=== PATIENT | female | born 1985 | race Two or more races ===

== ENCOUNTER 2018-10-20 15:18 | Emergency (ER) | payer BC, MEDICAID ==
[~2018-10-20] VITALS: Ht 157.5 cm; Wt 97.5 kg
[2018-10-20 15:18] VITALS: BP 126/69
[~2018-10-20 15:18] MED LIST: FLUO20CA36 PO; GABA-534 PO; OXCA300T4 PO; PERP2TAB5 PO; QUET300T2 PO
== END 2018-10-20 17:10 | disposition home or self-care (01) ==
LOC: ER 15:28
DX: Z76.0 Encounter for issue of repeat prescription (principal); G89.29 Other chronic pain; M54.9 Dorsalgia, unspecified; I10 Essential (primary) hypertension; F20.9 Schizophrenia, unspecified; F32.9 Major depressive disorder, single episode, unspecified; F41.9 Anxiety disorder, unspecified; E78.00 Pure hypercholesterolemia, unspecified; M19.90 Unspecified osteoarthritis, unspecified site; D64.9 Anemia, unspecified; Z79.899 Other long term (current) drug therapy

== ENCOUNTER 2020-03-04 09:29 | Emergency (ER) | payer MEDICAID, OTHER ==
[~2020-03-04] VITALS: Ht 157.5 cm; Wt 145.1 kg
[2020-03-04 09:30] VITALS: BP 142/83
--- NOTE | 2020-03-04 09:52 | NUR ---
CALLED WOUND CARE FOR FOLLOW UP APPOINTMENT. DR. GLOVER WILL BE ASSIGNED.
--- NOTE | 2020-03-04 09:59 | NUR ---
Patient discharged to home in stable condition. Written and verbal after care instructions given. Patient verbalizes understanding of instruction.
== END 2020-03-04 10:19 | disposition home or self-care (01) ==
LOC: ER 09:34
DX: S21.001D Unspecified open wound of right breast, subsequent encounter (principal); L98.7 Excessive and redundant skin and subcutaneous tissue; I10 Essential (primary) hypertension; Z60.2 Problems related to living alone; Z79.899 Other long term (current) drug therapy; X58.XXXD Exposure to other specified factors, subsequent encounter

== ENCOUNTER 2025-07-30 14:57 | Emergency (ER) | payer MEDICARE, MEDICAID ==
[~2025-07-30] VITALS: Ht 157.5 cm; Wt 90.7 kg
[2025-07-30 16:00] VITALS: TEMP 99.2
[2025-07-30] MEDS ORDERED: KETOROLAC TROMETHAMINE 15 MG/ML VIAL ONE (17:57)
[2025-07-30] MEDS: KETOROLAC TROMETHAMINE 15 MG/ML VIAL IM ONE (18:06)
[2025-07-30] MEDS ORDERED: LIDO30AD10 TP (19:28)
[2025-07-30] MEDS ORDERED: IBUP-1490 PO (19:28)
[2025-07-30 19:32] VITALS: BP 131/78; O2SAT 97
== END 2025-07-30 19:33 | disposition home or self-care (01) ==
LOC: ER 15:02
DX: M79.605 Pain in left leg (principal); M25.552 Pain in left hip; I10 Essential (primary) hypertension; F20.9 Schizophrenia, unspecified; F31.9 Bipolar disorder, unspecified; F41.9 Anxiety disorder, unspecified; Z79.899 Other long term (current) drug therapy; Z60.2 Problems related to living alone
CPT/HCPCS: 99284; 96372; 72110; 73503; J1885; 73502